=== PATIENT | male | born 1945 | race Caucasian/White ===

== ENCOUNTER → 2021-07-31 | Outpatient (CLI) | payer MEDICARE | LOC: M PLARAD 09:19 | PROVIDERS: ATTEND Student in an Organized Health Care Education/Training Program | DX: C81.95 Hodgkin lymphoma, unspecified, lymph nodes of inguinal region and lower limb (principal) | CPT/HCPCS: 78815; A9552 ==

== ENCOUNTER → 2022-02-05 | Outpatient (CLI) | payer MEDICARE | LOC: M PLARAD 11:10 | DX: C83.35 Diffuse large B-cell lymphoma, lymph nodes of inguinal region and lower limb (principal); R93.1 Abnormal findings on diagnostic imaging of heart and coronary circulation; R93.422 Abnormal radiologic findings on diagnostic imaging of left kidney | CPT/HCPCS: 78815; A9552 ==

== ENCOUNTER → 2022-02-27 | Outpatient (CLI) | payer MEDICARE ==
[~2022-02-27] MED LIST: GASTROGRAFIN SOLUTION 30ML (Q9963) As Ordered ONE; ISOVUE-370 76% 100ML VIAL As Ordered ONE
== END ==
LOC: M RAD 13:40
PROVIDERS: ATTEND Nurse Practitioner Family
DX: R94.8 Abnormal results of function studies of other organs and systems (principal); C83.35 Diffuse large B-cell lymphoma, lymph nodes of inguinal region and lower limb; N13.30 Unspecified hydronephrosis
CPT/HCPCS: 71260; 74177; Q9963; Q9967